=== PATIENT | male | born 1995 | race Asian ===

== ENCOUNTER 2021-05-27 01:43 | Emergency (ER) | payer SELFPAY ==
[2021-05-27] VITALS (9 sets, daily range): BP systolic 114–147; BP diastolic 67–87; PULSE 65–98; RESP 16–28; TEMP 37.1; O2SAT 97–100
--- NOTE | ~2021-05-27 | XR_ITS ---
EXAMINATION: XR chest 2V DATE: 05/27/2021 02:17 INDICATION: Palpitations TECHNIQUE: PA and lateral views of the chest were obtained. COMPARISON: None FINDINGS: The lungs are clear with no focal airspace opacities, pulmonary edema, pleural effusion or pneumothor ax. The cardiomediastinal silhouette is normal. Visualized bones and soft tissues are unremarkable. IMPRESSION: 1. Normal chest radiograph. Reviewed, dictated and finalized at location A. IMPRESSION: 1. Normal chest radiograph.
--- NOTE | 2021-05-27 01:55 | ECG_ITS ---
Measurements Intervals [place] Rate: 90 P: 81 MT: 133 QRS: 53 QRSD: 92 T: 28 QT: 350 QTc: 429 Interpretive Statements SINUS RHYTHM ST ELEVATION IN ANT/HIGH LAT LEADS- PROBABLY EARLY REPOLARIZATION ABNORMALITY BORDERLINE ECG Electronically Signed On 05-27-2021 6:17:08 CDT by Leno Huertas D.O.
[2021-05-27 02:59] LABS: Basophils Absolute Auto 0.1 K/mm3 (0.0-0.1); Basophils Percent Auto 0.6 % (0.2-1.2); Eosinophils Absolute Auto 0.3 K/mm3 (0-0.3); Eosinophils Percent Auto 2.8 % (0-4.4); Hematocrit 48.3 % (42.0-52.0); Immature Granulocyte Absolute 0.15 K/mm3 (0.00-0.031); Immature Granulocyte Percent A 1.5 % (0-0.5); Lymphocytes Absolute Auto 3.74 K/mm3 (0.9-3.2); Lymphocytes Percent Auto 38.6 % (18.3-44.2); Mean Corpuscular HGB Conc 33.1 g/dl (32-36); Mean Corpuscular Hemoglobin 28.7 pg (26-34); Mean Corpuscular Volume 86.7 fl (80-100); Mean Platelet Volume 10.9 fl (7.4-10.4); Monocytes Absolute Auto 0.7 K/mm3 (0.1-0.6); Monocytes Percent Auto 7.4 % (2.6-8.5); Neutrophils Absolute Auto 4.7 K/mm3 (1.3-6.7); Neutrophils Percent Auto 49.1 % (45.5-73.1); Platelet Count Result 173 k/mm3 (150-375); Red Blood Count 5.57 M/mm3 (4.6-6.20); White Blood Count 9.7 K/mm3 (4.5-10.0)
[2021-05-27 03:12] LABS: D Dimer 0.27 ug/mL (<0.48)
[2021-05-27 03:13] LABS: Alanine Aminotransferase 35 U/L (4-50); Albumin Level 4.9 g/dL (3.5-5.1); Alkaline Phosphatase 99 U/L (38-126); Anion Gap 10 mmol/L (8-16); Aspartate Amino Transferase 33 U/L (17-59); Bilirubin,Total 0.5 mg/dL (0.2-1.3); Blood Urea Nitrogen 12 mg/dL (9-20); Calcium 9.8 mg/dL (8.4-10.2); Carbon Dioxide 27 mmol/L (22-30); Chloride 104 mmol/L (98-107); Estimated CRCL calculation 71 ml/min; Estimated Glomerular Filt Rate > 60; Glucose 113 mg/dL (75-110); Magnesium 2.1 mg/dL (1.6-2.3); Potassium 3.7 mmol/L (3.4-5.0); Sodium 141 mmol/L (137-145)
--- NOTE | 2021-05-27 03:17 | ED.ARRPALP ---
HPI - Arrhythmia/Palpitations General Chief Complaint: Arrhythmia/Palpitations Stated Complaint: feels like heart is racing Time Seen by Provider: 05/27/21 01:53 Source: patient and RN notes reviewed Mode of arrival: ambulatory Limitations: no limitations History of Present Illness HPI narrative: This is a 25 year old male who presents for evaluation of heart racing. He reports that as he was laying in bed he started feeling like his heart was racing and pounding. This occurred for 2 hours . He reports this sensation is worse when he lays down. He denies chest pain, sob, leg swelling, vomiting, diarrhea. He denies taking any supplements or medications. He does not that he received is [employer] vaccine last week. His symptoms are not present currently. MD complaint: rapid heart beat Related Data Allergies Allergy/AdvReac Type Severity Reaction Status Date / Time No Known Allergies Allergy Verified 05/27/21 01:45 Review of Systems Review of Systems: All systems reviewed & are unremarkable except as noted in HPI and below PMFSH Past Medical History Medical History (Updated 05/27/21 @ 04:42 by Shayna Yanez MD) Patient denies medical problems Surgical History Surgical History (Updated 05/27/21 @ 03:20 by Shayna Yanez MD) No pertinent past surgical history Social History Social History (Updated 05/27/21 @ 03:20 by Shayna Yanez MD) Smoking status: Never smoker Alcohol intake: never Substance use: never Gender identity (if verbalized by the patient): Male Exam Const: General: no acute distress and alert Orientation/consciousness: patient oriented x3 Eyes: EOM: EOMs intact bilaterally Resp: Effort & Inspection: normal respiratory effort and no retractions Auscultation: clear to auscultation bilaterally Cardio: Rate: regular rate Rhythm: regular rhythm Heart sounds: no murmurs GI: GI Palp: Yes Soft to palpation, No Tenderness to palpation present (GI) and No Guarding due to palpation present (GI) Auscultation: normal bowel sounds Skin: General skin exam: normal color Rashes: no rashes Neuro: General: patient oriented x3 and moves all extremities Psych: Mental Status: mental status grossly normal Affect: normal affect Course Reevaluation(s) Reevaluation #1: I discussed with patient that labs are unremarkable. He has had normal sinus rhythm during ED course. He now reports he is drinking alot of coke. We discussed cutting back on sodas and staying away from energy drinks. Date: 05/27/21 Time: 04:39 Vital Signs Vital signs: Vital Signs Temperature 98.7 F 05/27/21 01:49 Pulse Rate 91 05/27/21 01:49 Respiratory Rate 27 H 05/27/21 01:49 Blood Pressure 147/84 H 05/27/21 01:49 Pulse Oximetry 99 05/27/21 01:49 Temperature 98.7 F 05/27/21 01:49 Pulse Rate 66 05/27/21 04:48 Respiratory Rate 16 05/27/21 04:48 Blood Pressure 128/85 05/27/21 04:48 Pulse Oximetry 97 05/27/21 04:48 MDM - Arrhythmia/Palpitations Lab Data Attestation: I reviewed the patient's lab results. Result diagrams: 05/27/21 02:48 05/27/21 02:48 Labs: Lab Results 05/27/21 05/27/21 05/27/21 Range/Units 02:48 02:48 02:48 WBC 9.7 (4.5-10.0) K/mm3 RBC 5.57 (4.6-6.20) M/mm3 Hgb 16.0 (14.0-18.0) g/dL Hct 48.3 (42.0-52.0) % MCV 86.7 (80-100) fl MCH 28.7 (26-34) pg MCHC 33.1 (32-36) g/dl RDW 12.0 (11.5-14.5) % Plt Count 173 (150-375) k/mm3 MPV 10.9 H (7.4-10.4) fl Immature Gran % (Auto) 1.5 H (0-0.5) % Neut % (Auto) 49.1 (45.5-73.1) % Lymph % (Auto) 38.6 (18.3-44.2) % [place] % (Auto) 7.4 (2.6-8.5) % Eos % (Auto) 2.8 (0-4.4) % Baso % (Auto) 0.6 (0.2-1.2) % Lymph # (Auto) 3.74 H (0.9-3.2) K/mm3 [place] # (Auto) 0.7 H (0.1-0.6) K/mm3 Eos # (Auto) 0.3 (0-0.3) K/mm3 Baso # (Auto) 0.1 (0.0-0.1) K/mm3 Abs Immat Gran (auto) 0.15 H (0.00-0.03
[2021-05-27 03:24] LABS: Troponin I < 0.012 ng/mL (0.000-0.034)
[2021-05-27 04:01] LABS: Add Urine Microscopic? NO; Appearance Urine Clear (Clear); Bilirubin Urine Negative (Negative); Blood Urine Negative (Negative); Color Urine Colorless (Yellow); Glucose Urine UA Negative (Negative); Ketones Urine Negative (Negative); Leukocyte Esterase Ur Negative LEU/UL (Negative); Nitrate Urine Negative (Negative); Protein Urine Negative (Negative); Urobilinogen Urine Negative mg/dL (<2.0)
[2021-05-27 04:17] LABS: Amphetamine Screen Urine Negative (Negative); Barbiturate Screen Urine Negative (Negative); Benzodiazepines Screen Urine Negative (Negative); Cannabinoid Screen Urine Negative (Negative); Cocaine Screen Urine Negative (Negative); Methadone Screen Urine Negative (Negative); Opiate Screen Urine Negative (Negative); Phencyclidine Screen Urine Negative (Negative)
[2021-05-27 04:28] LABS: Specific Grav Ur 1.003 (1.001-1.035)
== END 2021-05-27 04:51 | disposition home or self-care (01) ==
PROVIDERS: Emergency Provider General Practice
DX: R00.2 Palpitations (principal); R94.31 Abnormal electrocardiogram [ECG] [EKG]
CPT/HCPCS: 36415; 71046; 80053; 80307; 81003; 83735; 84484; 85025; 85380; 93005; 99284

== ENCOUNTER 2024-10-23 12:15 | Emergency (ER) | payer OTHER, SELFPAY ==
[2024-10-23 12:19] VITALS: BP 146/100; PULSE 106; RESP 16; TEMP 36.3; O2SAT 100
--- NOTE | 2024-10-23 12:30 | ED_ITS ---
HPI - Eye Problem General Chief complaint: Eye Problems Stated complaint: left eye redness Time Seen by Provider: 10/23/24 12:23 History of Present Illness HPI Narrative: Patient is a 28-year-old male who presents ER with left eye discomfort. Ongoing for 3 days. Has redness and itching. No actual discomfort to the eyeball. He has discomfort to the left lateral lower eyelid. No drainage. Related Data Allergies Allergy/AdvReac Type Severity Reaction Status Date / Time No Known Allergies Allergy Verified 10/23/24 12:16 Review of Systems Constitutional: Constitutional: Reports no additional constitutional complaints Eyes: Eyes: Reports no additional eye complaints ENT: Reports system reviewed and no additional complaints, except as documented PMFSH Past Medical History Medical History (Updated 10/23/24 @ 12:33 by Desean Limon MD) Patient denies medical problems Surgical History Surgical History (Updated 05/27/21 @ 03:20 by Shayna Yanez MD) No pertinent past surgical history Social History Social History (Updated 05/27/21 @ 03:20 by Shayna Yanez MD) Smoking status: Never smoker Alcohol intake: never Substance use: never Gender identity (if verbalized by the patient): Male Exam Narrative: GENERAL: Well-appearing, well-nourished, and in no acute distress. HEAD: Normocephalic, atraumatic. Eyes: PERRLA, EOMI. Left lower lid with a stye and conjunctival irritation. ENT: Mucous membranes moist. EXTREMITIES: Normal range of motion. No edema. NEURO: Alert and oriented x3. PSYCH: Normal mood and affect. Course Vital Signs Vital signs: Vital Signs Temperature 97.4 F L 10/23/24 12:19 Pulse Rate 106 H 10/23/24 12:19 Respiratory Rate 16 10/23/24 12:19 Blood Pressure 146/100 H 10/23/24 12:19 Pulse Oximetry 100 10/23/24 12:19 Temperature 97.4 F L 10/23/24 12:19 Pulse Rate 106 H 10/23/24 12:19 Respiratory Rate 16 10/23/24 12:19 Blood Pressure 146/100 H 10/23/24 12:19 Pulse Oximetry 100 10/23/24 12:19 Discharge Plan Discharge Clinical Impression: [place]e Patient Disposition: Home, Self-Care Condition: Stable Instructions: Antibiotic Form, Stye (ED) Additional Instructions: Apply warm compresses to your eyelid 4 to 5 times a day. Apply the topical antibiotic. Follow up with an eye doctor if needed. Prescriptions: New erythromycin 5 mg/gram (0.5 %) ointment 0.5 inch LEFT EYE QID Qty: 3.5 0RF Follow-up/Referrals: PHYSICIAN,CARD PROCESSING CLERK [Non-Staff] -
== END 2024-10-23 12:58 | disposition home or self-care (01) ==
LOC: ANHED 12:34
PROVIDERS: Emergency Provider Emergency Medicine; PCP Emergency Medicine
DX: H00.015 Hordeolum externum left lower eyelid (principal)
CPT/HCPCS: 99283